=== PATIENT | male | born 1980 | race Caucasian/White ===

== ENCOUNTER 2016-09-04 19:22 | Observation (INO) ==
[2016-09-04] MEDS ORDERED: PROMETHAZINE 25 MG TABLET PO PRN (20:12)
[2016-09-04] MEDS ORDERED: ONDANSETRON 4 MG/2 ML VIAL IV PRN (20:12)
[2016-09-04] MEDS ORDERED: ZALEPLON 5 MG CAPSULE PO PRN (20:12)
[2016-09-04] MEDS ORDERED: hydrALAZINE 20 MG/1 ML VIAL IV PRN (20:16)
[2016-09-04] MEDS ORDERED: LORazepam 2 MG/1 ML VIAL IV PRN (20:16)
[2016-09-04] MEDS ORDERED: cloNIDine 0.1 MG TABLET PO PRN (20:19)
[2016-09-04] MEDS ORDERED: MAGNESIUM SULF RIDER 2 GM in PREMIX 1 EACH IV PRN (20:21)
[2016-09-04] MEDS ORDERED: MAGNESIUM SULF RIDER 4 GM in PREMIX 1 EACH IV PRN (20:21)
[2016-09-04] MEDS ORDERED: POTASSIUM CHLORIDE RIDER 10 MEQ in PREMIX 1 EACH IV PRN (20:21)
[2016-09-04] MEDS ORDERED: SODIUM CHLORIDE 0.9% 1,000 ML IV ONE (20:21)
[2016-09-04] MEDS ORDERED: POTASSIUM CHLORIDE 20 MEQ TABLET PO PRN (20:21)
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
--- NOTE | 2016-09-04 20:43 | XRay Report ---
Portable chest Date: 09/04/2016 Clinical history: Shortness of breath Comparison: None Technique: Portable AP sitting chest Findings: The heart is normal in size with minimal uncoiling on the aorta. Calcified granulomata/nodes with minimal atelectasis. Unremarkable mediastinum with no acute osseous findings. Impression: Minimal uncoiling of the aorta which could be related to hypertensive cardiovascular disease. Old healed granulomatous disease with minimal atelectasis. Expiratory chest. PROCEDURE INTERPRETED AT [facility] DEPARTMENT OF RADIOLOGY Final Report Signed by: Dr. Analia Figueroa
[2016-09-04] MEDS ORDERED: DIAZEPAM 5 MG TABLET PO SCH (21:00)
[2016-09-04 21:17] LABS: Basophils # 0.1 10*3/uL (0.0-0.2); Basophils % 0.5 % (0.0-0.8); Eosinophils # 0.1 10*3/uL (0.0-0.87); Eosinophils % 0.6 % (0.00-10.9); Hematocrit 39.8 VOL% (42.0-52.0); Hemoglobin 14.1 GM/DL (14.0-18.0); Immature Granulocytes % 0.3 %; Immature Granulocytes Absolute 0.03 #; Lymphocytes # 2.9 10*3/uL (1.4-4.0); Mean Corpuscular HGB Conc 35.4 GM/DL (32-36); Mean Corpuscular Hemoglobin 31 PG (27-34); Mean Corpuscular Volume 88.1 FL (87-102); Mean Platelet Volume 9.9 FL (9.6-12.0); Monocytes # 0.9 10*3/uL (0.11-0.8); Monocytes % 8.8 % (1.7-12.7); Neutrophils # 6.4 10*3/uL (1.4-7.4); Neutrophils % 61.8 % (38.7-73.9); Platelet Count 449 T/CUMM (130-400); Red Blood Count 4.52 MC/CUMM (3.8-5.5); White Blood Count 10.4 T/CUMM (4-12)
[2016-09-04 21:39] LABS: Alanine Aminotransferase 43 U/L (16-61); Albumin 3.9 G/DL (3.4-5.0); Alkaline Phosphatase 78 U/L (45-117); Aspartate Amino Transferase 18 U/L (0-37); Bilirubin,Total < 0.39 MG/DL (0.2-1.0); Blood Urea Nitrogen 14 MG/DL (7-18); Calcium 9.6 MG/DL (8.5-10.1); Glucose 106 MG/DL (74-106); Magnesium 2.3 MG/DL (1.8-2.4); Osmolality,Calculated 279.4 MOS/KG (273-304); Potassium 4.6 MMOL/L (3.5-5.1); Sodium 140 MMOL/L (136-145); Total Protein 7.8 G/DL (6.4-8.3)
[2016-09-04] MEDS: SODIUM CHLORIDE 0.9% 1,000 ML IV SCH (21:51)
[2016-09-04 22:34] LABS: HIV Antigen/Antibody Result Nonreactive (Nonreactive); Hepatitis A Ab IgM Quant 0.13 Index; Hepatitis A Ab IgM Result Negative (Negative); Hepatitis B Core IgM Result Negative (Negative); Hepatitis B Surface Ag Quant < 0.10 Index; Hepatitis B Surface Ag Result Negative (Negative); Hepatitis C Virus Ab Quant > 11.00 Index; Hepatitis C Virus Ab Result Positive (Negative)
[2016-09-04 23:46] LABS: Barbiturates Screen,Urine Negative (Negative); Benzodiazepines Screen,Urine Negative (Negative); Cannabinoid Screen,Urine Negative (Negative); Opiate Screen,Urine Negative (Negative); Phencyclidine Screen,Urine Negative (Negative)
[2016-09-04 23:47] LABS: Apearance,Urine CLEAR (Clear); Bilirubin,Urine Negative (Negative); Blood, Urine Negative (Negative); Glucose,Urine (UA) Negative (Negative); Ketones,Urine Negative (Negative); Mucus,Urine Occasional /LPF (Occasional); Nitrite,Urine Negative (Negative); Protein,Urine Negative; RBC,Urine 1 /HPF (0-4); Urine Color Yellow (Yellow); Urine Specific Gravity 1.013 (1.001-1.035); Urine Urobilinogen < 2.0 EU/DL (0.2-1.0); WBC,Urine 2 /HPF (0-6)
[2016-09-05] MEDS: SODIUM CHLORIDE 0.9% 1,000 ML IV SCH (04:53)
--- NOTE | 2016-09-05 07:53 | EKG Report ---
Stationary ECG Study [facility] Test Date: 09/05/2016 7:23:44 AM Pat Name: MARIANELA GRIFFITH Department: Room: 534 Gender: M [employer] Operator: : [id number] Requested by: Miya Pressley Order Number: [id number] Reading MD: NALINI HEATH Intervals [employer] Rate: 78 P: 67 PA: 152 QRS: 66 QRSD: 94 T: 69 QT: 370 QTc: 403 Interpretive Statements SINUS RHYTHM Electronically Signed On 09-05-16 13:08:48 CDT by NALINI HEATH [email or web address]
[2016-09-05 07:56] VITALS: BP 150/91
[2016-09-05 08:20] LABS: Calcium 9.3 MG/DL (8.5-10.1); Magnesium 2.5 MG/DL (1.8-2.4); Osmolality,Calculated 276.5 MOS/KG (273-304); Potassium 4.5 MMOL/L (3.5-5.1)
--- NOTE | 2016-09-05 09:51 | Discharge Summary ---
Hospital Course - Hospital Course Hospital Course: 36 y/o Wm admitted with N/V/D due to withdrawal of heroin. He received IVF and benzo's for his sx's. He has done well and is feeling better. He has no more diarrhea or nausea. He ate breakfast. He is being discharged home to follow up with outpt rehab for narcotic/opiate addiction. He was found to be positive for Hep C. He was informed and educated regarding his disease. - Time spent with patient Time with patient DS: Less than 30 minutes Diagnosis - Discharge Diagnosis (1) Heroin withdrawal Status: Resolved (2) Hypertension Status: Chronic (3) IV drug user Status: Chronic (4) Nausea vomiting and diarrhea Status: Resolved (5) Hep C w/o coma, chronic Status: Chronic Discharge Plan - Discharge Data Disposition: Disch To Home/Self Care Condition at Discharge: Stable Discharge Diet: advance to your usual diet Activity: resume usual activities as tolerated Hygiene: no restrictions Weight Bearing at Discharge: full weight bearing Driving: no restrictions Contact your physician if you experience:: fever over 101, Nausea/Vomiting, Shortness of breath, Bleeding - Discharge Medications New LORazepam TAB [Ativan Tab] 1 mg PO BID PRN #10 tablet PRN Reason: Agitation - Follow Up or Referral - Forms/Instructions Instructions: Viral Hepatitis C (DC), Viral Hepatitis C (GEN) Exam - Constitutional Vitals: Period Temp Pulse Resp BP Sys/[place] Pulse Ox Last 24 Hr 97.6 F-98.8 F 86-94 20-20 142-158/78-98 95-97 Discharge Results Procedures and tests throughout hospitalization: Pending Orders 09/04/16 20:28 Blood Culture Stat Labs on day of discharge: Labs from last 24 hours 09/05/16 09/04/16 09/04/16 07:41 20:45 20:45 WBC RBC Hgb Hct MCV MCH MCHC RDW Plt Count MPV Neut % (Auto) Lymph % (Auto) Young % (Auto) Eos % (Auto) Baso % (Auto) Neut # (Auto) Lymph # (Auto) Young # (Auto) Eos # (Auto) Baso # (Auto) Immature Gran % Nucleated RBC % Immature Gran # Nucleated RBCs # Sodium 139 Potassium 4.5 Chloride 107 Carbon Dioxide 26 Anion Gap 10.5 BUN 13 Creatinine 0.80 GFR Calculation 146 BUN/Creatinine Ratio 16.00 Glucose 101 Calculated Osmolality 276.5 Calcium 9.3 Magnesium 2.5 H Total Bilirubin AST ALT Alkaline Phosphatase Total Protein Albumin Globulin Albumin/Globulin Ratio Urine Color Yellow Urine Appearance Clear Urine pH 6.0 Ur Specific [place] 1.013 Urine Protein Negative Urine Glucose (UA) Negative Urine Ketones Negative Urine Blood Negative Urine Nitrate Negative Urine Bilirubin Negative Urine Urobilinogen < 2.0 H Urine Leukocytes Negative Urine RBC 1 Urine WBC 2 Urine Mucus Occasional Ur Culture Indicated? Not indicated Urine Opiates Screen Negative Ur Barbiturates Screen Negative Ur Phencyclidine Scrn Negative U Amphetamine/Methamph Positive H U Benzodiazepines Scrn Negative U Cocaine Metab Screen Negative U Cannabinoids Screen Negative Hepatitis A IgM Ab Hep Bs Antigen Hep B Core IgM Ab Hepatitis C Antibody HIV 1&2 Antigen & Ab 09/04/16 09/04/16 09/04/16 20:28 20:28 20:28 WBC 10.4 RBC 4.52 Hgb 14.1 Hct 39.8 L MCV 88.1 MCH 31 MCHC 35.4 RDW 13.0 Plt Count 449 H MPV 9.9 Neut % (Auto) 61.8 Lymph % (Auto) 28.0 Young % (Auto) 8.8 Eos % (Auto) 0.6 Baso % (Auto) 0.5 Neut # (Auto) 6.4 Lymph # (Auto) 2.9 Young # (Auto) 0.9 H Eos # (Auto) 0.1 Baso # (Auto) 0.1 Immature Gran % 0.3 Nucleated RBC % 0.0 Immature Gran # 0.03 Nucleated RBCs # 0.00 Sodium 140 Potassium 4.6 Chloride 105 Carbon Dioxide 28 Anion Gap 11.6 BUN 14 Creatinine 1.20 GFR Calculation 98 BUN/Creatinine Ratio 11.00 Glucose 106 Calculated Osmolality 279.4 Calcium 9.6 Magnesium 2.3 Total Bilirubin < 0.39 AST 18 ALT 43 Alkaline Phosphatase 78 Total Protein 7.8 Albumin 3.9 Globulin 3.9 H Albumin/Globulin Ratio 1.0 L Urine Color Urine Appearance Urine pH Ur Specific [place] Urine Protein Urine Glucose (UA) Urine Ketones Urine Blood Urine Nitrate Urine Bilirubin Urine Urobilinogen Urine Leukocytes Urine RBC Urine WBC Urine Mucus Ur Culture Indicated? Urine Opiates Screen Ur Barbiturates Screen Ur Phencyclidine Scrn U Amphetamine/Methamph U Benzodiazepines Scrn U Cocaine Metab Screen U Cannabinoids Screen Hepatitis A IgM Ab Negative Hep Bs Antigen Negative Hep B Core IgM Ab Negative Hepatitis C Antibody Positive A HIV 1&2 Antigen & Ab Nonreactive DS: Provider Date of admission: 09/04/16 19:26 Primary care physician: Miya Pressley MD Attending physician on admission: Miya Pressley MD Discharging clinician: Miya Pressley MD Expected date of discharge: 09/05/16
== END 2016-09-05 10:43 | disposition home or self-care (01) ==
LOC: INTOOBSV 19:26 → N.5E 19:26
PROVIDERS: ADMIT Family Medicine; ATTEND Family Medicine

== ENCOUNTER 2017-01-05 07:07 | Observation (INO) ==
[2017-01-05] MEDS ORDERED: SODIUM CHLORIDE 0.9% 1,000 ML IV STA (07:43)
[2017-01-05 07:49] LABS: Basophils # 0.1 10*3/uL (0.0-0.2); Basophils % 0.6 % (0.0-0.8); Eosinophils # 0.1 10*3/uL (0.0-0.87); Eosinophils % 0.8 % (0.00-10.9); Hematocrit 43.9 VOL% (42.0-52.0); Hemoglobin 15.3 GM/DL (14.0-18.0); Immature Granulocytes % 1.1 %; Lymphocytes # 2.1 10*3/uL (1.4-4.0); Lymphocytes % 23.3 % (21.2-54.2); Mean Corpuscular HGB Conc 34.9 GM/DL (32-36); Mean Corpuscular Hemoglobin 31 PG (27-34); Mean Corpuscular Volume 87.6 FL (87-102); Mean Platelet Volume 9.8 FL (9.6-12.0); Monocytes # 0.6 10*3/uL (0.11-0.8); Monocytes % 7.2 % (1.7-12.7); Neutrophils # 5.9 10*3/uL (1.4-7.4); Platelet Count 392 T/CUMM (130-400); Red Blood Count 5.01 MC/CUMM (3.8-5.5); Red Cell Distribution Width 12.6 % (9.3-17.3); White Blood Count 8.8 T/CUMM (4-12)
[2017-01-05 08:04] LABS: Bilirubin,Total 0.4 MG/DL (0.2-1.0); Calcium 9.1 MG/DL (8.5-10.1); Osmolality,Calculated 277.8 MOS/KG (273-304); Potassium 3.9 MMOL/L (3.5-5.1); Total Protein 7.7 G/DL (6.4-8.3)
[2017-01-05 08:07] LABS: Salicylate < 2.8 MG/DL (2.8-20)
[2017-01-05 08:09] LABS: Acetaminophen < 2.0 UG/ML (10-30)
[2017-01-05] MEDS ORDERED: ONDANSETRON 4 MG/2 ML VIAL IV STA (08:09)
[2017-01-05] MEDS ORDERED: ONDANSETRON 4 MG/2 ML VIAL ONE (08:10)
[2017-01-05 08:50] LABS: Apearance,Urine Slightly Hazy (Clear); Bacteria,Urine Occasional /HPF (Few); Bilirubin,Urine Negative (Negative); Blood, Urine Negative (Negative); Glucose,Urine (UA) Negative (Negative); Hyaline Casts,Urine 12 /LPF (0-3); Ketones,Urine Negative (Negative); Mucus,Urine Occasional /LPF (Occasional); Nitrite,Urine Negative (Negative); Protein,Urine 30 MG/DL; RBC,Urine 3 /HPF (0-4); Squamous Epithelial Cell,Urine Occasional /HPF (0-10); Urine Color Yellow (Yellow); Urine Specific Gravity 1.016 (1.001-1.035); WBC,Urine 17 /HPF (0-6)
[2017-01-05 09:24] LABS: Barbiturates Screen,Urine Negative (Negative); Benzodiazepines Screen,Urine Negative (Negative); Cannabinoid Screen,Urine Negative (Negative); Opiate Screen,Urine Positive (Negative); Phencyclidine Screen,Urine Negative (Negative)
[2017-01-05] MEDS ORDERED: ONDANSETRON 4 MG/2 ML VIAL IV PRN (10:51)
[2017-01-05] MEDS ORDERED: LORazepam 2 MG/1 ML VIAL IV PRN (10:51)
[2017-01-05] MEDS: PANTOPRAZOLE 40 MG TABLET PO SCH (11:50)
[2017-01-05] MEDS ORDERED: hydrALAZINE 10 MG TABLET PO PRN (13:31)
[2017-01-05] MEDS ORDERED: ACETAMINOPHEN 325 MG TABLET PO PRN (13:36)
[2017-01-06 04:47] LABS: Basophils % 0.4 % (0.0-0.8); Eosinophils % 0.6 % (0.00-10.9); Hematocrit 41.4 VOL% (42.0-52.0); Hemoglobin 14.2 GM/DL (14.0-18.0); Immature Granulocytes % 0.3 %; Immature Granulocytes Absolute 0.02 #; Lymphocytes # 2.5 10*3/uL (1.4-4.0); Lymphocytes % 37.8 % (21.2-54.2); Mean Corpuscular HGB Conc 34.3 GM/DL (32-36); Mean Corpuscular Hemoglobin 30 PG (27-34); Mean Corpuscular Volume 88.1 FL (87-102); Mean Platelet Volume 9.7 FL (9.6-12.0); Monocytes # 0.6 10*3/uL (0.11-0.8); Monocytes % 8.7 % (1.7-12.7); Neutrophils # 3.5 10*3/uL (1.4-7.4); Neutrophils % 52.2 % (38.7-73.9); Platelet Count 359 T/CUMM (130-400); Red Cell Distribution Width 12.7 % (9.3-17.3); White Blood Count 6.7 T/CUMM (4-12)
[2017-01-06 05:17] LABS: Calcium 9.1 MG/DL (8.5-10.1); Osmolality,Calculated 273.7 MOS/KG (273-304); Potassium 4.5 MMOL/L (3.5-5.1)
[2017-01-06] MEDS: PANTOPRAZOLE 40 MG TABLET PO SCH (08:05)
[2017-01-07 09:17] VITALS: BP 133/75
[2017-01-07] MEDS: PANTOPRAZOLE 40 MG TABLET PO SCH (09:45)
== END 2017-01-07 11:31 | disposition home or self-care (01) ==
LOC: EDBD → EDUNIT# → N.ED 07:07 → N.EDINP 07:07 → SUATTDRO 09:36 → N.CC 10:14 → N.5E 01-06 13:51
PROVIDERS: ADMIT Internal Medicine; ATTEND Internal Medicine Geriatric Medicine